=== PATIENT | male | born 1955 | race Caucasian/White ===

== ENCOUNTER 2017-04-07 06:16 | Observation (INO) | payer OTHER ==
[~2017-04-07] VITALS: Ht 177.8 cm; Wt 85.0 kg
[~2017-04-07 06:16] MED LIST: ASPI-496 PO; CALCIUM PO; CLOP75TA22 PO; FISH OIL PO; FISH1CAP PO; GLUC1TAB91 PO; HYDR-882 PO; HYDR1TAB10 PO; LISI-170 PO; LOVA20TA2 PO; OXYC5CAP4 PO; VITA400C14 PO; VITAMIN D PO; VITAMIN E PO
[2017-04-07 07:07] VITALS: BP 186/97
[2017-04-07 07:42] LABS: BLOOD UREA NITROGEN 20 mg/dL (7-18)
[2017-04-07] MEDS ORDERED: NITROGLYCERIN 5 MG/ML, 10ML ONE (07:51)
[2017-04-07] MEDS ORDERED: NALOXONE 1 MG/ML, 2ML ONE (07:51)
[2017-04-07] MEDS ORDERED: MIDAZOLAM 1 MG/ML, 5ML ONE (07:51)
[2017-04-07] MEDS ORDERED: FENTANYL PF 100 MCG/2ML ONE (07:51)
[2017-04-07] MEDS ORDERED: HEPARIN 1,000 UNITS/ML, 10ML ONE (07:51)
[2017-04-07] MEDS ORDERED: PROTAMINE SULFATE 10 MG/ML, 25ML ONE (07:51)
[2017-04-07] MEDS ORDERED: FLUMAZENIL 0.1 MG/1 ML, 5ML ONE (07:51)
[2017-04-07] MEDS ORDERED: LIDOCAINE 2%, 20ML ONE (07:54)
[2017-04-07] MEDS ORDERED: VISIPAQUE 270 MG/ML, 150ML BOTTLE ONE (08:30)
[2017-04-07] MEDS ORDERED: hydrALAzine 20 MG/ML, 1ML ONE (10:01)
[2017-04-07] MEDS ORDERED: SODIUM CHLORIDE 0.9% 1,000 ML IV SCH (10:29)
[2017-04-07] MEDS ORDERED: ONDANSETRON 2MG/ML, 2ML IV PRN (10:30)
[2017-04-07] MEDS ORDERED: HYDROcodone/APAP 5/325 TABLET PO PRN (10:30)
== END 2017-04-07 15:10 | disposition home or self-care (01) ==
LOC: OUT 06:16 → ORIP 10:29
PROVIDERS: ADMIT Surgery; ATTEND Surgery
DX: I73.9 Peripheral vascular disease, unspecified (principal); I10 Essential (primary) hypertension; E78.5 Hyperlipidemia, unspecified; Z87.891 Personal history of nicotine dependence
CPT/HCPCS: 36415; 37225; 75630; 76937; 80048; 85025; 99156; 99157; C1714; C1725; C1751; C1760; C1769; C1884; C1894; C2623; G0378; J0360; J1644; J2250; J3010; J3490; Q9966; J2720; J2310

== ENCOUNTER 2017-06-18 08:40 | Observation (INO) | payer OTHER ==
[~2017-06-18] VITALS: Ht 177.8 cm; Wt 81.8 kg
[~2017-06-18 08:40] MED LIST changes: -CLOP75TA22 PO; +CLOP75TA52 PO; +FENTANYL PF 100 MCG/2ML ONE; +FLUMAZENIL 0.1 MG/1 ML, 5ML ONE; +HEPARIN 1,000 UNITS/ML, 10ML ONE; +LIDOCAINE 1%, 2ML ONE; +LIDOCAINE 2%, 20ML ONE; +MIDAZOLAM 1 MG/ML, 5ML ONE; +NALOXONE 1 MG/ML, 2ML ONE; +NITROGLYCERIN 5 MG/ML, 10ML ONE; +OXYC5CAP2 PO; -OXYC5CAP4 PO; +PROTAMINE SULFATE 10 MG/ML, 25ML ONE
[2017-06-18] MEDS ORDERED: hydrALAzine 20 MG/ML, 1ML ONE (09:09)
[2017-06-18] MEDS ORDERED: SODIUM CHLORIDE 0.9% 1,000 ML IV SCH (09:28)
[2017-06-18] MEDS ORDERED: ONDANSETRON 2MG/ML, 2ML IV PRN (09:30)
[2017-06-18] MEDS ORDERED: HYDROcodone/APAP 5/325 TABLET PO PRN (09:30)
[2017-06-18] MEDS ORDERED: VISIPAQUE 270 MG/ML, 150ML BOTTLE ONE (10:26)
== END 2017-06-18 16:10 | disposition home or self-care (01) ==
LOC: OUT 08:40 → ORIP 09:28
PROVIDERS: ADMIT Surgery; ATTEND Surgery
DX: I73.9 Peripheral vascular disease, unspecified (principal); I77.1 Stricture of artery
CPT/HCPCS: 37225; 75630; 99156; 99157; C1714; C1725; C1769; C1884; C1894; G0378; J0360; J1644; J2250; J3010; J3490; Q9966; J2720; J2310

== ENCOUNTER 2018-02-10 09:58 | Day surgery (SDC) | payer OTHER ==
[~2018-02-10] VITALS: Ht 172.7 cm; Wt 82.8 kg
[~2018-02-10 09:58] MED LIST changes: +CALC1CAP8 PO; -FENTANYL PF 100 MCG/2ML ONE; -FLUMAZENIL 0.1 MG/1 ML, 5ML ONE; -HEPARIN 1,000 UNITS/ML, 10ML ONE; -LIDOCAINE 1%, 2ML ONE; -LIDOCAINE 2%, 20ML ONE; -MIDAZOLAM 1 MG/ML, 5ML ONE; -NALOXONE 1 MG/ML, 2ML ONE; -NITROGLYCERIN 5 MG/ML, 10ML ONE; -PROTAMINE SULFATE 10 MG/ML, 25ML ONE
[2018-02-10 10:51] VITALS: BP 152/90
[2018-02-10] MEDS ORDERED: LIDOCAINE 1%, 20ML ONE (11:42)
[2018-02-10 11:47] LABS: BASOPHILS # (AUTO) 0.04 x10^3/uL (0-0.1); BASOPHILS % (AUTO) 1 % (0-1); EOSINOPHILS # (AUTO) 0.37 x10^3/uL (0-0.4); EOSINOPHILS % (AUTO) 5 % (1-7); LYMPHOCYTES # (AUTO) 2.29 x10^3/uL (1-3.4); LYMPHOCYTES % (AUTO) 32 % (22-44); MD NO; MEAN CORPUSCULAR HEMOGLOBIN 30.5 pg (27.5-34.5); MEAN CORPUSCULAR HGB CONC 34.1 g/dL (33.2-36.2); MEAN CORPUSCULAR VOLUME 89.5 fL (81-97); MEAN PLATELET VOLUME 7.3 fL (7.4-10.4); MONOCYTES # (AUTO) 0.69 x10^3/uL (0.2-0.8); MONOCYTES % (AUTO) 10 % (2-9); NEUTROPHILS # (AUTO) 3.71 x10^3/uL (1.8-6.8); NEUTROPHILS % (AUTO) 52 % (42-75); PLATELET COUNT 271 x10^3/uL (130-400); RED BLOOD COUNT 4.84 x10^6/uL (4.38-5.82); RED CELL DISTRIBUTION WIDTH 13.8 % (9.4-14.8)
[2018-02-10 11:48] LABS: ANION GAP 7 mmol/L (5-15); CHLORIDE 108 mmol/L (98-107); CREATININE 1.13 mg/dL (0.7-1.3)
[2018-02-10] MEDS ORDERED: LIDOCAINE 2%, 10ML ONE (11:51)
[2018-02-10] MEDS ORDERED: VISIPAQUE 270 MG/ML, 50ML BOTTLE ONE (12:00)
[2018-02-10] MEDS ORDERED: FENTANYL PF 100 MCG/2ML ONE (12:05)
[2018-02-10] MEDS ORDERED: FLUMAZENIL 0.1 MG/1 ML, 5ML ONE (12:06)
[2018-02-10] MEDS ORDERED: HEPARIN 1,000 UNITS/ML, 10ML ONE (12:06)
[2018-02-10] MEDS ORDERED: MIDAZOLAM 1 MG/ML, 5ML ONE (12:06)
[2018-02-10] MEDS ORDERED: NALOXONE 1 MG/ML, 2ML ONE (12:06)
[2018-02-10] MEDS ORDERED: NITROGLYCERIN 5 MG/ML, 10ML ONE (12:06)
[2018-02-10] MEDS ORDERED: PROTAMINE SULFATE 10 MG/ML, 25ML ONE (12:06)
[2018-02-10] MEDS ORDERED: hydrALAzine 20 MG/ML, 1ML ONE (14:28)
[2018-02-10] MEDS ORDERED: HYDROcodone/APAP 5/325 TABLET PO PRN (15:30)
[2018-02-10] MEDS ORDERED: hydrALAzine 20 MG/ML, 1ML IV PRN (15:30)
== END 2018-02-10 18:50 ==
LOC: OUT 09:58
PROVIDERS: ATTEND Surgery
DX: I70.211 Atherosclerosis of native arteries of extremities with intermittent claudication, right leg (principal); I10 Essential (primary) hypertension
CPT/HCPCS: 36415; 37227; 75630; 80048; 85025; 99156; 99157; C1714; C1725; C1751; C1760; C1769; C1876; C1884; C1894; J0360; J1644; J2250; J3010; J3490; Q9966; J2720; J2310

== ENCOUNTER 2018-09-16 06:40 | Day surgery (SDC) | payer OTHER ==
[~2018-09-16] VITALS: Ht 172.7 cm; Wt 82.8 kg
[~2018-09-16 06:40] MED LIST changes: +HYDR-3653 PO; +HYDR-63 PO; -HYDR-882 PO
[2018-09-16 06:54] VITALS: BP 143/86
[2018-09-16] MEDS ORDERED: D5%-0.45% NACL 1,000 ML IV SCH (06:58)
[2018-09-16] MEDS ORDERED: LIDOCAINE-MPF 1%, 5ML ONE (07:03)
[2018-09-16 07:18] LABS: BASOPHILS # (AUTO) 0.05 x10^3/uL (0-0.1); BASOPHILS % (AUTO) 1 % (0-1); EOSINOPHILS # (AUTO) 0.38 x10^3/uL (0-0.4); EOSINOPHILS % (AUTO) 5 % (1-7); LYMPHOCYTES # (AUTO) 2.28 x10^3/uL (1-3.4); LYMPHOCYTES % (AUTO) 31 % (22-44); MD NO; MEAN CORPUSCULAR HEMOGLOBIN 30.4 pg (27.5-34.5); MEAN CORPUSCULAR HGB CONC 33.9 g/dL (33.2-36.2); MEAN CORPUSCULAR VOLUME 89.5 fL (81-97); MEAN PLATELET VOLUME 7.2 fL (7.4-10.4); MONOCYTES # (AUTO) 0.84 x10^3/uL (0.2-0.8); MONOCYTES % (AUTO) 11 % (2-9); NEUTROPHILS # (AUTO) 3.92 x10^3/uL (1.8-6.8); NEUTROPHILS % (AUTO) 53 % (42-75); PLATELET COUNT 336 x10^3/uL (130-400); RED BLOOD COUNT 5.13 x10^6/uL (4.38-5.82); RED CELL DISTRIBUTION WIDTH 13.5 % (9.4-14.8)
[2018-09-16] MEDS ORDERED: FENTANYL PF 100 MCG/2ML ONE (07:29)
[2018-09-16 07:30] LABS: ANION GAP 7 mmol/L (5-15); CALCIUM 9.3 mg/dL (8.5-10.1); CHLORIDE 110 mmol/L (98-107); CREATININE 1.16 mg/dL (0.7-1.3)
[2018-09-16] MEDS ORDERED: NALOXONE 1 MG/ML, 2ML ONE (07:30)
[2018-09-16] MEDS ORDERED: NITROGLYCERIN 5 MG/ML, 10ML ONE (07:30)
[2018-09-16] MEDS ORDERED: HEPARIN 1,000 UNITS/ML, 10ML ONE (07:30)
[2018-09-16] MEDS ORDERED: PROTAMINE SULFATE 10 MG/ML, 25ML ONE (07:30)
[2018-09-16] MEDS ORDERED: FLUMAZENIL 0.1 MG/1 ML, 5ML ONE (07:30)
[2018-09-16] MEDS ORDERED: MIDAZOLAM 1 MG/ML, 5ML ONE (07:30)
[2018-09-16] MEDS ORDERED: DIPHENHYDRAMINE 50 MG/ML, 1ML ONE (08:21)
[2018-09-16] MEDS ORDERED: SODIUM CHLORIDE 0.9% 1,000 ML IV SCH (09:58)
[2018-09-16] MEDS ORDERED: ONDANSETRON 2MG/ML, 2ML IV PRN (10:00)
[2018-09-16] MEDS ORDERED: CLOPIDOGREL 300 MG TABLET PO ONE (10:30)
== END 2018-09-16 12:30 | disposition home or self-care (01) ==
LOC: OUT 06:40 → ORIP 09:58 → UNDOADMOB 09:58 → OUT 12:30
PROVIDERS: ATTEND Surgery
DX: I70.212 Atherosclerosis of native arteries of extremities with intermittent claudication, left leg (principal); I70.211 Atherosclerosis of native arteries of extremities with intermittent claudication, right leg; E78.5 Hyperlipidemia, unspecified; I10 Essential (primary) hypertension; Z79.899 Other long term (current) drug therapy; Z79.82 Long term (current) use of aspirin; Z98.890 Other specified postprocedural states
CPT/HCPCS: 36415; 37225; 75630; 80048; 85025; 99156; 99157; C1714; C1725; C1751; C1760; C1769; C1884; C1894; C2623; J1200; J1644; J2250; J2310; J2720; J3010

== ENCOUNTER 2020-07-28 11:56 | Observation (INO) | payer OTHER ==
[~2020-07-28] VITALS: Ht 172.7 cm; Wt 76.9 kg
[~2020-07-28 11:56] MED LIST changes: +IBUP200C8 PO; +LISI40TA PO
[2020-07-28 12:23] VITALS: BP 173/90
[2020-07-28 13:09] LABS: BASOPHILS % (AUTO) 1 % (0-1); EOSINOPHILS % (AUTO) 4 % (1-7); LYMPHOCYTES % (AUTO) 29 % (22-44); MEAN CORPUSCULAR HEMOGLOBIN 30.7 pg (27.5-34.5); MEAN CORPUSCULAR HGB CONC 33.7 g/dL (33.2-36.2); MEAN PLATELET VOLUME 6.9 fL (7.4-10.4); MONOCYTES % (AUTO) 10 % (2-9); NEUTROPHILS % (AUTO) 56 % (42-75); PLATELET COUNT 277 x10^3/uL (130-400); RED BLOOD COUNT 4.86 x10^6/uL (4.38-5.82); RED CELL DISTRIBUTION WIDTH 13.2 % (9.4-14.8)
[2020-07-28 13:13] LABS: MD NO
[2020-07-28 13:21] LABS: ALANINE AMINOTRANSFERASE 27 U/L (12-78); ALBUMIN 4.1 g/dL (3.4-5.0); ANION GAP 3 mmol/L (5-15); CALCIUM 9.5 mg/dL (8.5-10.1); CHLORIDE 105 mmol/L (98-107)
[2020-07-28 13:24] LABS: ALKALINE PHOSPHATASE 80 U/L (45-117); BILIRUBIN,TOTAL 0.5 mg/dL (0.2-1.0); CREATININE 1.01 mg/dL (0.7-1.3); TOTAL PROTEIN 6.9 g/dL (6.4-8.2)
[2020-07-28] MEDS ORDERED: D5%-0.45% NACL 1,000 ML IV SCH (14:00)
[2020-07-28] MEDS ORDERED: LIDOCAINE 1%, 10ML ONE (15:11)
[2020-07-28] MEDS ORDERED: FENTANYL PF 100 MCG/2ML ONE (15:20)
[2020-07-28] MEDS ORDERED: FLUMAZENIL 0.1 MG/1 ML, 5ML ONE (15:20)
[2020-07-28] MEDS ORDERED: MIDAZOLAM 1 MG/ML, 5ML ONE (15:20)
[2020-07-28] MEDS ORDERED: HEPARIN 1,000 UNITS/ML, 10ML ONE (15:20)
[2020-07-28] MEDS ORDERED: NALOXONE 1 MG/ML, 2ML ONE (15:20)
[2020-07-28] MEDS ORDERED: PROTAMINE SULFATE 10 MG/ML, 25ML ONE (15:21)
[2020-07-28] MEDS ORDERED: ONDANSETRON 2MG/ML, 2ML IVPush PRN (18:00)
[2020-07-28] MEDS ORDERED: OXYcodone/APAP 7.5/325MG TABLET PO PRN (18:00)
[2020-07-28] MEDS ORDERED: SODIUM CHLORIDE 0.9% 1,000 ML IV SCH (18:00)
[2020-07-28] MEDS ORDERED: ACETAMINOPHEN 325 MG TABLET PO PRN (18:00)
[2020-07-28 21:18] VITALS: BP 131/84
== END 2020-07-28 21:15 | disposition home or self-care (01) ==
LOC: SDC 11:56 → 4NE 18:00 → SDC 18:33 → 4NE 18:38
PROVIDERS: ADMIT Surgery; ATTEND Surgery
DX: I70.211 Atherosclerosis of native arteries of extremities with intermittent claudication, right leg (principal); I70.212 Atherosclerosis of native arteries of extremities with intermittent claudication, left leg; I10 Essential (primary) hypertension; E78.5 Hyperlipidemia, unspecified; F17.200 Nicotine dependence, unspecified, uncomplicated; Z79.82 Long term (current) use of aspirin; Z79.899 Other long term (current) drug therapy
CPT/HCPCS: 36415; 37225; 75630; 75710; 80053; 85025; 96360; 96361; C1714; C1760; C1769; C1884; C1894; C2623; G0378; J1644; J2250; J3010; J3490; J2720; J2310